=== PATIENT | male | born 1975 | race Asian ===

== ENCOUNTER 2017-05-19 20:32 | Emergency (ER) | payer OTHER ==
[~2017-05-19] VITALS: Ht 177.8 cm; Wt 111.1 kg
[2017-05-19 21:27] LABS: PLATELET COUNT 296 K/uL (142-355)
[2017-05-19 21:39] LABS: POTASSIUM 3.8 mmol/L (3.6-5.2)
[2017-05-19 22:05] VITALS: BP 155/98; TEMP 98.2
== END 2017-05-19 22:08 | disposition home or self-care (01) ==
LOC: ED 20:32
DX: K52.9 Noninfective gastroenteritis and colitis, unspecified (principal); I10 Essential (primary) hypertension
CPT/HCPCS: 36415; 74022; 80053; 82550; 82553; 85027; 87081; 87804; 87880; 99283

== ENCOUNTER 2020-12-04 13:50 | Emergency (ER) | payer OTHER ==
[~2020-12-04] VITALS: Ht 177.8 cm; Wt 108.9 kg
[2020-12-04 14:59] LABS: PLATELET COUNT 233 K/uL (142-355)
[2020-12-04 15:10] LABS: POTASSIUM 4.2 mmol/L (3.6-5.2)
[2020-12-04 15:20] LABS: PARTIAL THROMBOPLASTIN TIME 27.4 SECONDS (24.5-33.6)
[2020-12-04 16:50] VITALS: BP 135/97; TEMP 98.7
== END 2020-12-04 16:50 | disposition home or self-care (01) ==
LOC: ED 13:50
PROVIDERS: Emergency Medicine
DX: I10 Essential (primary) hypertension (principal); R09.82 Postnasal drip; Z20.822 Contact with and (suspected) exposure to COVID-19
CPT/HCPCS: 80053; 83880; 84484; 85027; 85379; 85610; 85730; 87635; 93005; 99284; U0003

== ENCOUNTER 2021-02-05 03:18 | Emergency (ER) | payer OTHER ==
[~2021-02-05] VITALS: Ht 180.3 cm; Wt 108.9 kg
[2021-02-05] MEDS ORDERED: AMLO2.5T PO (03:40)
[2021-02-05] MEDS ORDERED: PANTOPRAZOLE 40MG TA PO (03:40)
[2021-02-05 03:55] LABS: PLATELET COUNT 246 K/uL (142-355)
[2021-02-05 04:03] LABS: POTASSIUM 3.3 mmol/L (3.6-5.2)
[2021-02-05 05:10] VITALS: BP 155/96; TEMP 97.5
== END 2021-02-05 05:15 | disposition home or self-care (01) ==
LOC: ED 03:18
PROVIDERS: Emergency Medicine Emergency Medical Services
DX: K29.70 Gastritis, unspecified, without bleeding (principal)
CPT/HCPCS: 36415; 80053; 81000; 83690; 84484; 85027; 96360; 96374; 99284